=== PATIENT | male | born 1960 | race Caucasian/White ===

== ENCOUNTER → 2020-02-15 10:42 | Outpatient (BNVA) | payer OTHER, SELFPAY | PROVIDERS: PCP Physician Assistant; Visit Provider Internal Medicine | DX: Z76.89 Persons encountering health services in other specified circumstances (principal) ==

== ENCOUNTER 2020-02-20 16:29 | Outpatient (REF) | payer OTHER, SELFPAY ==
--- NOTE | 2020-02-20 16:30 | MR_ITS ---
EXAMINATION: MR BRAIN WITHOUT AND WITH CONTRAST CLINICAL INFORMATION: Hypopituitarism. COMPARISON: None available. TECHNIQUE: MRI of the brain was obtained using pituitary protocol without and with contrast following the administration of 4 mL of Gadavist intravenous contrast. FINDINGS: No focal restricted diffusion is demonstrated to suggest acute or subacute cerebral ischemia. No evidence of acute or chronic hemorrhagic products on heme-sensitive imaging. Minimal nonspecific scattered periventricular and deep white matter T2 FLAIR hyperintensities, most commonly seen with minimal microangiopathy. Otherwise, normal parenchymal signal characteristics. The ventricles are normal in morphology and size. No abnormal mass effect. No midline shift. Normal morphology and signal intensity of the pituitary gland on precontrast imaging. Normal posterior pituitary bright spot. No hyperenhancing or hypoenhancing lesions demonstrated on post contrast imaging. The pituitary infundibulum is normal in morphology and remains midline in position. The suprasellar cistern remains patent. No abnormal mass effect on the optic chiasm. Prominent expansile CSF space posterior to the cerebellum/torcula without abnormal enhancement, measuring 4.9 x 3.9 x 4.5 cm. Otherwise, no abnormalities of the posterior fossa with normal appearance of the brainstem and cerebellum. Normal positioning of the cerebellar tonsils. Normal arterial and venous vascular flow voids are present. No abnormal contrast enhancement. Normal, homogeneous marrow signal. Mild mucosal thickening of the paranasal sinuses. No signal abnormalities within the mastoids. MR/MR head/brain wo/w con IMPRESSION: 1. No acute intracranial abnormalities. 2. Normal MRI appearance of the pituitary gland. 3. Prominent CSF space posterior to the cerebellum/torcula suggestive of an arachnoid cyst.
== END 2020-02-20 16:30 | disposition home or self-care (01) ==
LOC: HO.MRI 16:29
PROVIDERS: Visit Provider Internal Medicine
DX: E23.0 Hypopituitarism (principal)
CPT/HCPCS: 70553; A9585

== ENCOUNTER 2020-05-30 06:55 | Outpatient (REF) | payer OTHER, SELFPAY ==
[2020-05-30 07:43] LABS: Hematocrit 43.5 % (42-52); Hemoglobin 14.4 g/dl (14.0-18.0); Mean Corpuscular HGB Conc 33.1 g/dl (31.0-36.0); Mean Corpuscular Hemoglobin 29.1 pg (27.0-33.0); Mean Corpuscular Volume 87.9 fL (80-98); Mean Platelet Volume 8.5 fL (9.4-12.4); Platelet Count 286 X10*3/uL (160-400); Red Blood Count 4.95 X10*6/uL (4.60-5.80); Red Cell Distribution Width 13.5 % (11.0-16.0)
[2020-05-30 08:18] LABS: Alanine Aminotransferase 22 U/L (0-40); Albumin Level 4.6 g/dL (3.5-5.0); Alkaline Phosphatase 47 U/L (39-117); Anion Gap 12 (12-20); Aspartate Amino Transferase 21 U/L (5-37); Bilirubin Total 0.8 mg/dL (0.0-1.0); Blood Urea Nitrogen 18 mg/dL (9-16); Calcium 9.5 mg/dL (8.4-10.2); Carbon Dioxide 27 mmol/L (22-29); Chloride 103 mmol/L (96-108); Cholesterol 251 mg/dL; Estimated Glomerular Filt Rate > 60; Glucose Fasting 100 mg/dL (60-99); HDL Cholesterol 70 mg/dL; LDL Cholesterol Calculated 171 mg/dl; Potassium 4.2 mmol/L (3.3-5.1); Sodium 138 mmol/L (135-145); Total Protein 6.9 g/dL (6.5-8.0); Triglycerides 51 mg/dL
[2020-05-30 11:09] LABS: Prostate Specific Antigen Scr 0.69 ng/mL (<0.05-4.0)
== END 2020-05-30 06:56 | disposition home or self-care (01) ==
LOC: HO.LAB 06:55
PROVIDERS: PCP Internal Medicine; Visit Provider Physician Assistant
DX: E78.5 Hyperlipidemia, unspecified (principal); I10 Essential (primary) hypertension; Z12.5 Encounter for screening for malignant neoplasm of prostate
CPT/HCPCS: 36415; 80053; 80061; 84153; 85027

== ENCOUNTER 2020-07-10 07:10 | Outpatient (REF) | payer OTHER, SELFPAY ==
[2020-07-10 08:40] LABS: HDL Cholesterol 66 mg/dL
[2020-07-10 09:06] LABS: Free T4 (Free Thyroxine) 0.73 ng/dL (0.71-1.85); Thyroid Stimulating Hormone 1.23 uIU/mL (0.32-4.0)
[2020-07-11 02:47] LABS: Triiodothyronine T3 Free 4.5 pg/mL (2.3-4.2)
[2020-07-11 03:11] LABS: LDL Cholesterol Direct 181 mg/dL (<100)
[2020-07-11 06:46] LABS: DHEA Sulfate 75 mcg/dL (38-313)
[2020-07-11 13:56] LABS: CRP High Sensitivity 0.5 mg/L
[2020-07-11 15:37] LABS: Adrenocorticotropic Hormone 32 pg/mL (6-50)
[2020-07-11 16:47] LABS: Homocysteine 8.6 umol/L (<11.4)
[2020-07-14 11:42] LABS: Testosterone, Total 799 ng/dL (250-1100)
[2020-07-14 12:31] LABS: Testosterone, Free 64.5 pg/mL (35.0-155.0); Testosterone, Total 777 ng/dL (250-1100)
[2020-07-14 23:32] LABS: Dihydrotestosterone 51 ng/dL (12-65)
[2020-07-17 02:06] LABS: Lipoprotein A 28 nmol/L (<75)
[2020-07-18 18:56] LABS: Estradiol Free 0.51 pg/mL; Estradiol, Ultrasensitive 26 pg/mL
== END 2020-07-10 07:11 | disposition home or self-care (01) ==
LOC: HO.LAB 07:10
PROVIDERS: PCP Physician Assistant; Visit Provider Nurse Practitioner Family
DX: R53.83 Other fatigue (principal); E29.1 Testicular hypofunction; E03.8 Other specified hypothyroidism
CPT/HCPCS: 36415; 82024; 82533; 82627; 82642; 82670; 82681; 83090; 83695; 83718; 83721; 84402; 84403; 84439; 84443; 84481; 86141

== ENCOUNTER 2020-07-15 15:41 | Outpatient (REF) | payer OTHER, SELFPAY | END 2020-07-15 15:42 | disposition home or self-care (01) | LOC: HO.LAB 15:41 | PROVIDERS: PCP Physician Assistant; Visit Provider Nurse Practitioner Family | DX: R53.83 Other fatigue (principal) | CPT/HCPCS: 36415; 82533 ==

== ENCOUNTER 2020-09-18 11:48 | Outpatient (REF) | payer OTHER, SELFPAY ==
--- NOTE | ~2020-09-18 | XR_ITS ---
EXAMINATION: XR SHOULDER, RIGHT CLINICAL INFORMATION: Right shoulder COMPARISON: None TECHNIQUE: AP external rotation, Grashey, scapular Y, and axillary views of the right shoulder. FINDINGS: There is no visible acute fracture, dislocation or subluxation seen. The soft tissues are normal. XR/XR shoulder RT min 2V IMPRESSION: Unremarkable right shoulder exam
== END 2020-09-18 11:49 | disposition home or self-care (01) ==
LOC: HO.XRAY 11:48
PROVIDERS: PCP Physician Assistant; Visit Provider Physician Assistant
DX: M77.8 Other enthesopathies, not elsewhere classified (principal)
CPT/HCPCS: 73030

== ENCOUNTER 2020-10-15 08:05 | Emergency (ER) | payer OTHER, SELFPAY ==
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
[2020-10-15 08:08] VITALS: BP 127/67; BP 130/85; PULSE 102; PULSE 91; RESP 18; TEMP 36.9; O2SAT 98; O2SAT 99; BMI 24.0
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
[2020-10-15] MEDS: Ketorolac Tromethamine 60 MG/2 ML VIAL IM (08:40)
== END 2020-10-15 09:37 | disposition home or self-care (01) ==
PROVIDERS: Emergency Provider Emergency Medicine; PCP Physician Assistant
DX: S39.012A Strain of muscle, fascia and tendon of lower back, initial encounter (principal); S29.012A Strain of muscle and tendon of back wall of thorax, initial encounter; V47.5XXA Car driver injured in collision with fixed or stationary object in traffic accident, initial encounter; Y93.9 Activity, unspecified; Y92.9 Unspecified place or not applicable; Y99.9 Unspecified external cause status
CPT/HCPCS: 72070; 72100; 96372; 99283; 99284; J1885

== ENCOUNTER 2020-10-23 07:33 | Outpatient (REF) | payer OTHER, SELFPAY ==
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
== END 2020-10-23 07:34 | disposition home or self-care (01) ==
LOC: HO.CT 07:33
PROVIDERS: Visit Provider Physician Assistant
DX: S32.019A Unspecified fracture of first lumbar vertebra, initial encounter for closed fracture (principal); X58.XXXA Exposure to other specified factors, initial encounter; Y93.9 Activity, unspecified; Y92.9 Unspecified place or not applicable; Y99.9 Unspecified external cause status
CPT/HCPCS: 72131

== ENCOUNTER 2020-11-05 07:03 | Outpatient (REF) | payer OTHER, SELFPAY ==
[2020-11-05 08:43] LABS: Alanine Aminotransferase 22 U/L (0-40); Albumin Level 4.2 g/dL (3.5-5.0); Alkaline Phosphatase 74 U/L (39-117); Anion Gap 12 (12-20); Aspartate Amino Transferase 22 U/L (5-37); Bilirubin Total 0.5 mg/dL (0.0-1.0); Blood Urea Nitrogen 19 mg/dL (9-16); C Reactive Protein 0.06 mg/dL (< or = 0.50); Calcium 9.4 mg/dL (8.4-10.2); Carbon Dioxide 27 mmol/L (22-29); Chloride 107 mmol/L (96-108); Cholesterol 237 mg/dL; Estimated Glomerular Filt Rate > 60; Glucose Fasting 96 mg/dL (60-99); HDL Cholesterol 57 mg/dL; LDL Cholesterol Calculated 167 mg/dl; Potassium 4.6 mmol/L (3.3-5.1); Sodium 141 mmol/L (135-145); Total Protein 6.5 g/dL (6.5-8.0); Triglycerides 67 mg/dL
[2020-11-05 09:04] LABS: Vitamin D 25-OH Total 51.9 ng/mL (>30)
[2020-11-05 09:13] LABS: Rheumatoid Factor < 15.0 IU/mL (<15.0)
[2020-11-05 09:24] LABS: Erythrocyte Sedimentation Rate 5 MM/HR (0-15)
[2020-11-06 21:06] LABS: Lyme Abs Screen <0.90 index
[2020-11-07 08:52] LABS: Cyclic Citrullinated Peptide <16 UNITS
[2020-11-07 14:37] LABS: Anti Nuclear Antibody Screen NEGATIVE (NEGATIVE)
== END 2020-11-05 07:04 | disposition home or self-care (01) ==
LOC: HO.LAB 07:03
PROVIDERS: PCP Physician Assistant; Visit Provider Physician Assistant
DX: M25.50 Pain in unspecified joint (principal); E78.5 Hyperlipidemia, unspecified; E55.9 Vitamin D deficiency, unspecified
CPT/HCPCS: 36415; 80053; 80061; 82306; 84443; 85652; 86038; 86039; 86140; 86200; 86431; 86617; 86618

== ENCOUNTER 2020-11-25 19:04 | Outpatient (REF) | payer OTHER, SELFPAY ==
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
== END 2020-11-25 19:05 | disposition home or self-care (01) ==
LOC: HO.MRI 19:04
PROVIDERS: PCP Physician Assistant; Visit Provider Physician Assistant
DX: S32.019A Unspecified fracture of first lumbar vertebra, initial encounter for closed fracture (principal)
CPT/HCPCS: 72148

== ENCOUNTER 2021-05-08 07:10 | Outpatient (REF) | payer OTHER, SELFPAY ==
[2021-05-08 08:10] LABS: Hematocrit 40.7 % (42.0-52.0); Hemoglobin 13.7 g/dl (14.0-18.0); Mean Corpuscular HGB Conc 33.7 g/dl (31.0-36.0); Mean Corpuscular Hemoglobin 28.7 pg (27.0-33.0); Mean Corpuscular Volume 85.1 fL (80.0-98.0); Mean Platelet Volume 8.6 fL (9.4-12.4); Platelet Count 314 X10*3/uL (160-400); Red Blood Count 4.78 X10*6/uL (4.60-5.80); White Blood Count 13.7 X10*3/uL (4.8-10.8)
[2021-05-08 09:43] LABS: Prostate Specific Antigen Scr 0.79 ng/mL (<0.05-4.0); TSH reflex Free T4 0.79 uIU/mL (0.32-4.0)
[2021-05-08 10:04] LABS: Alanine Aminotransferase 17 U/L (0-40); Albumin Level 4.4 g/dL (3.5-5.0); Alkaline Phosphatase 52 U/L (39-117); Anion Gap 11 (12-20); Aspartate Amino Transferase 22 U/L (5-37); Bilirubin Total 0.6 mg/dL (0.0-1.0); Blood Urea Nitrogen 17 mg/dL (9-16); Calcium 9.5 mg/dL (8.4-10.2); Carbon Dioxide 25 mmol/L (22-29); Chloride 107 mmol/L (96-108); Cholesterol 276 mg/dL; Estimated Glomerular Filt Rate > 60; Glucose Fasting 108 mg/dL (60-99); HDL Cholesterol 72 mg/dL; LDL Cholesterol Calculated 195 mg/dl; Potassium 4.4 mmol/L (3.3-5.1); Sodium 139 mmol/L (135-145); Triglycerides 45 mg/dL
== END 2021-05-08 07:11 | disposition home or self-care (01) ==
LOC: HO.LAB 07:10
PROVIDERS: PCP Physician Assistant; Visit Provider Physician Assistant
DX: Z12.5 Encounter for screening for malignant neoplasm of prostate (principal); E03.9 Hypothyroidism, unspecified; I10 Essential (primary) hypertension; E78.5 Hyperlipidemia, unspecified
CPT/HCPCS: 36415; 80053; 80061; 84153; 84443; 85027

== ENCOUNTER 2021-11-04 07:07 | Outpatient (REF) | payer OTHER, SELFPAY ==
[2021-11-04 07:25] LABS: Hematocrit 43.3 % (42.0-52.0); Hemoglobin 14.4 g/dl (14.0-18.0); Mean Corpuscular HGB Conc 33.3 g/dl (31.0-36.0); Mean Corpuscular Hemoglobin 28.6 pg (27.0-33.0); Mean Corpuscular Volume 85.9 fL (80.0-98.0); Mean Platelet Volume 8.3 fL (9.4-12.4); Platelet Count 249 X10*3/uL (160-400); Red Blood Count 5.04 X10*6/uL (4.60-5.80); Red Cell Distribution Width 13.3 % (11.0-16.0); White Blood Count 5.6 X10*3/uL (4.8-10.8)
[2021-11-04 07:48] LABS: Alanine Aminotransferase 23 U/L (0-40); Albumin Level 4.4 g/dL (3.5-5.0); Alkaline Phosphatase 47 U/L (39-117); Anion Gap 12 (12-20); Aspartate Amino Transferase 22 U/L (5-37); Bilirubin Total 0.6 mg/dL (0.0-1.0); Blood Urea Nitrogen 15 mg/dL (9-16); Calcium 8.9 mg/dL (8.4-10.2); Carbon Dioxide 26 mmol/L (22-29); Chloride 105 mmol/L (96-108); Cholesterol 270 mg/dL; Estimated Glomerular Filt Rate > 60; Glucose Fasting 99 mg/dL (60-99); HDL Cholesterol 61 mg/dL; LDL Cholesterol Calculated 193 mg/dl; Potassium 4.3 mmol/L (3.3-5.1); Sodium 139 mmol/L (135-145); Total Protein 6.7 g/dL (6.5-8.0); Triglycerides 83 mg/dL
[2021-11-04 08:17] LABS: Estimated Average Glucose 114 mg/dL; Hemoglobin A1c % 5.6 %
== END 2021-11-04 07:08 | disposition home or self-care (01) ==
LOC: HO.LAB 07:07
PROVIDERS: PCP Internal Medicine; Visit Provider Physician Assistant
DX: E03.9 Hypothyroidism, unspecified (principal); E78.5 Hyperlipidemia, unspecified; Z82.49 Family history of ischemic heart disease and other diseases of the circulatory system
CPT/HCPCS: 36415; 80053; 80061; 83036; 84443; 85027

== ENCOUNTER 2022-07-07 07:09 | Outpatient (REF) | payer OTHER, SELFPAY ==
[2022-07-07 07:38] LABS: Hematocrit 43.3 % (42.0-52.0); Hemoglobin 14.3 g/dl (14.0-18.0); Mean Corpuscular Volume 84.7 fL (80.0-98.0); Mean Platelet Volume 8.1 fL (9.4-12.4); Platelet Count 267 X10*3/uL (160-400); Red Blood Count 5.11 X10*6/uL (4.60-5.80); Red Cell Distribution Width 13.3 % (11.0-16.0); White Blood Count 5.9 X10*3/uL (4.8-10.8)
[2022-07-07 08:20] LABS: Alanine Aminotransferase 21 U/L (0-40); Albumin Level 4.2 g/dL (3.5-5.0); Alkaline Phosphatase 49 U/L (39-117); Anion Gap 9 (12-20); Aspartate Amino Transferase 21 U/L (5-37); Bilirubin Total 0.6 mg/dL (0.0-1.0); Blood Urea Nitrogen 12 mg/dL (9-16); Calcium 9.3 mg/dL (8.4-10.2); Carbon Dioxide 29 mmol/L (22-29); Chloride 107 mmol/L (96-108); Cholesterol 270 mg/dL; Estimated Glomerular Filt Rate > 60; Glucose Fasting 104 mg/dL (60-99); HDL Cholesterol 60 mg/dL; LDL Cholesterol Calculated 193 mg/dl; Potassium 4.4 mmol/L (3.3-5.1); Sodium 141 mmol/L (135-145); Total Protein 6.3 g/dL (6.5-8.0); Triglycerides 86 mg/dL
[2022-07-07 08:27] LABS: Prostate Specific Antigen Scr 1.37 ng/mL (<0.05-4.0); TSH reflex Free T4 1.68 uIU/mL (0.32-4.0)
== END 2022-07-07 07:10 | disposition home or self-care (01) ==
LOC: HO.LAB 07:09
PROVIDERS: PCP Physician Assistant; Visit Provider Physician Assistant
DX: Z12.5 Encounter for screening for malignant neoplasm of prostate (principal); E03.9 Hypothyroidism, unspecified; E78.5 Hyperlipidemia, unspecified
CPT/HCPCS: 36415; 80053; 80061; 84153; 84443; 85027

== ENCOUNTER → 2022-08-12 07:49 | Outpatient (BNVA) | payer OTHER, SELFPAY | PROVIDERS: PCP Physician Assistant; Visit Provider Physician Assistant | DX: M65.341 Trigger finger, right ring finger (principal) | CPT/HCPCS: 20550; J1100 ==

== ENCOUNTER 2022-09-01 07:05 | Outpatient (REF) | payer OTHER, SELFPAY ==
[2022-09-03 02:23] LABS: Lyme Abs Screen <0.90 index
[2022-09-03 12:47] LABS: A. Phagocytphilium DNA,RT-PCR NOT DETECTED (NOT DETECTED); Babesia Microti DNA, RT-PCR NOT DETECTED (NOT DETECTED); Borrelia Miyamotoi,DNA RT-PCR NOT DETECTED (NOT DETECTED); E.Chaffeensis DNA RT-PCR NOT DETECTED (NOT DETECTED); Lyme(Borrelia ssp)DNA RT-PCR NOT DETECTED (NOT DETECTED)
== END 2022-09-01 07:06 | disposition home or self-care (01) ==
LOC: HO.LAB 07:05
PROVIDERS: PCP Physician Assistant; Visit Provider Physician Assistant
DX: M13.0 Polyarthritis, unspecified (principal); Z20.2 Contact with and (suspected) exposure to infections with a predominantly sexual mode of transmission
CPT/HCPCS: 36415; 86617; 86618; 87798; 87801

== ENCOUNTER 2022-09-24 09:49 | Outpatient (REF) | payer OTHER, SELFPAY ==
--- NOTE | ~2022-09-24 | XR_ITS ---
EXAMINATION: XR KNEE, LEFT CLINICAL INFORMATION: Pain. COMPARISON: None available. TECHNIQUE: Frontal, lateral and axial views of the left knee are submitted. FINDINGS: No fracture or joint effusion. Alignment is anatomic. Joint spaces are maintained. No abnormal soft tissue calcification. XR/XR knee LT 3V IMPRESSION: Unremarkable left knee.
== END 2022-09-24 09:50 | disposition home or self-care (01) ==
LOC: HO.XRAY 09:49
PROVIDERS: PCP Physician Assistant; Visit Provider Internal Medicine
DX: S83.92XA Sprain of unspecified site of left knee, initial encounter (principal)
CPT/HCPCS: 73562

== ENCOUNTER 2022-11-10 07:10 | Outpatient (REF) | payer OTHER, SELFPAY ==
[2022-11-10 07:29] LABS: Hematocrit 43.9 % (42.0-52.0); Hemoglobin 14.7 g/dl (14.0-18.0); Mean Corpuscular HGB Conc 33.5 g/dl (31.0-36.0); Mean Corpuscular Hemoglobin 28.4 pg (27.0-33.0); Mean Corpuscular Volume 84.7 fL (80.0-98.0); Mean Platelet Volume 8.1 fL (9.4-12.4); Platelet Count 284 X10*3/uL (160-400); Red Blood Count 5.18 X10*6/uL (4.60-5.80); Red Cell Distribution Width 13.2 % (11.0-16.0)
[2022-11-10 08:33] LABS: Alanine Aminotransferase 21 U/L (0-40); Albumin Level 4.1 g/dL (3.5-5.0); Alkaline Phosphatase 46 U/L (39-117); Anion Gap 10 (12-20); Aspartate Amino Transferase 19 U/L (5-37); Bilirubin Total 0.6 mg/dL (0.0-1.0); Blood Urea Nitrogen 12 mg/dL (9-16); Calcium 9.5 mg/dL (8.4-10.2); Carbon Dioxide 27 mmol/L (22-29); Chloride 107 mmol/L (96-108); Cholesterol 247 mg/dL; Estimated Glomerular Filt Rate > 60; Glucose Fasting 98 mg/dL (60-99); HDL Cholesterol 54 mg/dL; LDL Cholesterol Calculated 178 mg/dl; Potassium 4.1 mmol/L (3.3-5.1); Sodium 140 mmol/L (135-145); Total Protein 6.8 g/dL (6.5-8.0); Triglycerides 78 mg/dL
== END 2022-11-10 07:11 | disposition home or self-care (01) ==
LOC: HO.LAB 07:10
PROVIDERS: PCP Physician Assistant; Visit Provider Physician Assistant
DX: E03.9 Hypothyroidism, unspecified (principal); E78.5 Hyperlipidemia, unspecified
CPT/HCPCS: 36415; 80053; 80061; 84443; 85027

== ENCOUNTER 2022-11-19 07:46 | Outpatient (AMB) | payer OTHER, SELFPAY ==
[2022-11-19 07:57] VITALS: BP 128/68; PULSE 78; O2SAT 98; BMI 26.4
--- NOTE | 2022-11-19 07:57 | A.OFFPC_ITS ---
Vital Signs 11/19/22 07:57 Height 5 ft 9 in Weight 179 lb BMI 26.4 BP 128/68 Blood Pressure Location Lt brachial Position Sitting Pulse 78 Pulse Source Pulse Oximeter Pulse Oximetry (%) 98 Oxygen Delivery Method Room Air Intake Visit Reasons: Annual Exam Allergies ezetimibe [Zetia] Allergy (Unknown, Verified 11/19/22 08:20) abdominal pain statin Allergy (Unknown, Uncoded 11/19/22 08:00) Myalgias. Medication List - Last Reconciled 11/19/22 by Ian Mancini PA-C albuterol sulfate 90 mcg/actuation 2 puffs inhalation Q6H PRN 30 days cholestyramine (with sugar) 4 gram 1 ea PO BID fluticasone propionate 50 mcg/actuation 1 spray intranasal DAILY 30 days gemfibrozil 600 mg PO BID loperamide 2 mg PO QID PRN lorazepam 1 mg PO BID meloxicam 15 mg PO DAILY naltrexone 4.5 mg PO DAILY thyroid (pork) 15 mg PO DAILY thyroid (pork) mg PO tizanidine 4 mg PO Q12H 30 days Tobacco use date assessed: 09/24/22 Dental Screening Dental Screen Date: 11/19/22 Did you have a dental visit in the last 12 months?: Yes Did you have a dental problem in the last 6 months where you did not have access to dental care?: No Was dental information given to patient?: Patient has dentist HPI Annual Exam HPI Details Patient is a 62-year-old male here today for follow-up visit ?Patient has a past medical history significant for hypothyroidism, depression, vitamin-D deficiency, hyperlipidemia, family history of coronary artery disease Concerns-> continues to have polyarthralgia on his knees shoulders and neck. Has been using meloxicam with only minimal relief. He attributes this to his physically demanding work. Recent x-ray of knee without any osteoarthritis . .. Hypothyroidism:? Continues on pork thyroid, TSH has been stable.? Seems to be clinically? euthyroid ? .. ? HLD: Recent lipid panel showing improved total cholesterol. Patient? was followed by endocrinology was offered [facility]?though could not get insurance coverage . Did do some genetic cholesterol disease though reports it was negative.? Continues to have very elevated total cholesterol and LDL ? He has been continuing to use cholestyramine and gemfibrozil 600 q.d..? He reports he does have a fairly decent diet and continues with daily fiber supplement. Unfortunately patient does have a family history of coronary artery disease in his mother and father and does understand his risk.? He would like to continue on lifestyle to reduce his cholesterol.? He will consider re-establishing with endocrinology Of note he has not been able to tolerate statin therapy. .. Colonoscopy: Done by Dr. Gorman, needs repeat this year- willing to transfer to [facility] Vaccine: Up-to-date with COVID vaccine, pneumonia vaccine and tetanus vaccine. Considering shingles vaccine and flu vaccine Laboratory Tests 07/07/22 11/10/22 11/10/22 07:18 07:19 07:19 RBC 5.18 Cholesterol 270 247 LDL Cholesterol, C alc 193 178 TSH 1.30 PFSH Medical History (Updated 11/19/22 @ 12:22 by Ian Mancini PA-C) HLD (hyperlipidemia) Hypogonadism Hypogonadotropic hypogonadism Hypothyroidism L1 vertebral fracture Trigger finger, right ring finger Vitamin D deficiency Surgical History Hx of hernia repair Hx of knee surgery Hx of shoulder surgery Family History Father CAD (coronary artery disease), Onset Age: 50 Mother CAD (coronary artery disease) Brother Diabetes Brother No problems noted. Sister No problems noted. Sister No problems noted. 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 1. Little interest or pleasure in doing things: not at all 2. Feeling down, depressed, or hopeless: not at all 3. Trouble falling or staying asleep, or sleeping too much: not at all 4. Feeling tired or having little energy: not at all 5. Poor appetite or overeating: not at all 6. Feeling bad about yourself - or that you are a failure or have let yourself or your family down: not at all 7. Trouble concentrating on things, such as reading the newspaper or watching television: not at all 8. Moving or speaking so slowly that other people could have noticed. Or the opposite - being so fidgety or restless that you have been moving around a lot more than usual: not at all 9. Thoughts that you would be better off or of hurting yourself in some way: not at all Total score: 0 Depression Screening Interpretation: Negative 69415 - PHQ-9 Billing: Yes Source: Developed by Drs. Tom Tristan, Mike Mcgraw and colleagues, with an educational anselmo from [employer]. Thrive Questionnaire Date Thrive assessed: 07/14/22 AUDIT C Alcohol Use Questionnaire (AUDIT-C) 1. How often do you have a drink containing alcohol?: Never Total Score: 0 KAREN-7 AMB Questionnaire KAREN-7 Date KAREN - 7 assessed: 07/14/22 Source: Developed by Drs. Tom Tristan, Mike Mcgraw and colleagues, with an educational anselmo from [employer]. Review of Systems Const Denies body aches, Denies chills, Denies excessive sweating, Denies fatigue, Denies fever(s) and Denies headache(s) Eyes Denies blurry vision ENT Denies dysphagia, Denies vertigo, Denies dizziness, Denies headache(s), Denies hearing loss and Denies tinnitus Card Denies chest pain, Denies chest pain with activity, Denies syncope, Denies irregular heart rhythm and Denies dyspnea Resp Denies chest congestion, Denies cough, Denies hemoptysis, Denies dyspnea and Denies wheezing GI Denies abdominal pain, Denies melena, Denies hematochezia, Denies coffee ground emesis, Denies dysphagia, Denies diarrhea, Denies nausea and Denies vomiting Denies difficulty urinating, Denies dysuria, Denies urinary frequency, Denies urinary hesitancy and Denies urinary urgency Musc Denies arthralgias, Denies limited range of motion, Denies muscle cramps and Denies muscle weakness Skin/Breast Denies rash and Denies skin ulcer Neuro Denies Abnormal speech present, Denies confusion, Denies vertigo, Denies dizziness, Denies syncope, Denies headache(s), Denies memory loss and Denies seizure-like activity Psych Denies anxiety, Denies confusion, Denies depression, Denies memory loss, Denies panic attacks and Denies paranoia Endo Denies excessive sweating, Denies fatigue, Denies flushing, Denies polydipsia and Denies polyuria Aller/Immun Denies wheezing Physical exam (Primary Care) Vital Signs: Last Vital Signs Pulse 78 11/19/22 07:57 BP 128/68 11/19/22 07:57 Pulse Ox 98 11/19/22 07:57 Oxygen Delivery Method Room Air 11/19/22 07:57 BMI result Body Mass Index 26.4 Tobacco/Smoking Status: Tobacco use Status Tobacco use date assessed 09/24/22 11/19/22 08:02 Patient Tobacco Use Status Former Tobacco user 11/19/22 08:18 Tobacco use type Cigarette 11/19/22 08:18 e-Cigarette/Vaping Use Never Used 11/19/22 08:18 PHQ-9: PHQ-9 Score PHQ-9: Total score 0 11/19/22 08:15 Depression Screening Interpretation: Negative Thrive Assessment: Date of Thrive Assessment Date Thrive assessed 07/14/22 11/19/22 08:02 Const General: cooperative, comfortable, no acute distress, alert and awake; No confusion Orientation/consciousness: oriented to person, oriented to place, patient oriented x3 and No confusion HENMT Head: Yes normocephalic Ears: external ears normal and TM's normal bilaterally Face and sinus: No sinus tenderness Mouth: Normal oral and palatal mucosa present and tongue normal Teeth and gingiva: dentition normal and gingiva normal Throat: Yes posterior oropharynx normal, Yes tonsils normal and Yes uvula midline Eyes Conjunctivae: conjunctivae normal Sclerae: sclerae normal Pupils: Equal, round and reactive pupils present EOM: EOMs intact bilaterally Direct Ophthalmoscopy: No no photophobia Neck Neck: Yes no lymphadenopathy, No tender and Yes no JVD Thyroid: Thyroid normal Carotids: no bruits Chest Chest palpation & inspection: no tenderness Resp Effort & Inspection: normal respiratory effort, no audible wheezes, not labored and no stridor Auscultation: no crackles, no rales, no rhonchi and no wheezes Cardio Jugular venous distension: no JVD Rate: regular rate, not bradycardic and not tachycardic Rhythm: regular rhythm Bruits: no carotid bruits Peripheral pulses: Peripheral pulses 2+ throughout GI Inspection: Yes normal to inspection, No abdominal wall ecchymosis and No visible herniation Palpation (GI): Soft to palpation, nontender, no guarding, not rigid and No hepatosplenomegaly present Auscultation: normoactive bowel sounds General: Yes no CVA tenderness Back/Spine/Pelvis Back: no CVA tenderness and No back tenderness Cervical Spine: cervical ROM normal Thoracic/Lumbar Spine: thoracic and lumbar spine normal to inspection, straight leg raise negative bilaterally, No thoraco-lumbar ROM limited and No lumbar spinal tenderness Skin Lesions: no lesions Rashes: no rashes Wounds: no wounds Neuro General: oriented to person, oriented to place, patient oriented x3, CN's II-XI intact bilaterally and No confusion Cranial nerves: Yes Equal, round and reactive pupils present and Yes Normal accommodation reflex present Cognition (Neuro): normal cognition Speech: No Abnormal speech present Gait exam (Neuro): Normal gait present Motor exam (neuro): 5/5 motor strength present throughout Extrem Right upper extremity: full ROM; no cyanosis Left upper extremity: full ROM; no cyanosis Right lower extremity: no edema Left lower extremity: no edema Psych Appearance: grossly normal Mental Status: mental status grossly normal Affect: normal affect Attitude: cooperative Thought process: Normal thought process present Assessment and Plan Assessment & Plan (1) Annual physical exam: Code(s): Z00.00 - Encounter for general adult medical examination without abnormal findings (2) Hypothyroidism: Code(s): E03.9 - Hypothyroidism, unspecified Qualifiers: Hypothyroidism type: unspecified Qualified Code(s): E03.9 - Hypothyroidism, unspecified Plan: Continue with thyroid medication. Most recent TSH is stable (3) HLD (hyperlipidemia): Code(s): E78.5 - Hyperlipidemia, unspecified Qualifiers: Hyperlipidemia type: unspecified Qualified Code(s): E78.5 - Hyperlipidemia, unspecified Plan: Patient's most recent lipid panel showing improved cholesterol and LDL though remains high. Has been using chloride strep mean and gemfibrozil. 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 Will continue to follow Orders: Orders Comprehensive [place]. Panel Fast Today E78.5 - Hyperlipidemia, unspecified Lipid Panel Today E78.5 - Hyperlipidemia, unspecified Prostate Specific Antigen Scr Today E03.9 - Hypothyroidism, unspecified, Z12.5 - Encounter for screening for malignant neoplasm of prostate TSH reflex Free T4 Today E03.9 - Hypothyroidism, unspecified Vitamin D 25-OH Total Today E55.9 - Vitamin D deficiency, unspecified Coding Level of Care Code Est Pt Prev Care 40-64y([id number]) Diagnoses Annual physical exam Z00.00 Hypothyroidism E03.9 Hypothyroidism type: unspecified HLD (hyperlipidemia) E78.5 Hyperlipidemia type: unspecified
== END 2022-11-19 08:39 | disposition home or self-care (01) ==
PROVIDERS: PCP Physician Assistant; Visit Provider Physician Assistant
DX: Z00.00 Encounter for general adult medical examination without abnormal findings (principal); E03.9 Hypothyroidism, unspecified; E78.5 Hyperlipidemia, unspecified
CPT/HCPCS: 99396